=== PATIENT | male | born 1985 | race Hispanic/Latino ===

== ENCOUNTER → 2018-01-12 | Outpatient (CLI) | payer BC ==
[~2018-01-12] MED LIST: GADOBENATE DIMEGLUMINE 1 ML IV ONE; SODIUM CHLORIDE 0.9% 100 ML ONE
--- NOTE | 2018-01-12 10:41 | Diagnostic Imaging Report ---
History: History: Possible prolactinoma Comparison studies: None Technique: Pre-and post coronal and sagittal T1. Coronal T2. Axial DWI through the brain. Dynamic postcontrast coronal through the sella Intravenous contrast: 16 cc of MultiHance Findings: Sella: Normal in size and configuration. Pituitary gland: Normal in size. No intra-or suprasellar lesions . Pituitary stalk: Normal in size and at midline. Optic chiasm: Well visualized and unremarkable. Cavernous sinuses: Normal in size and symmetric. Internal carotid arteries: Normal flow void appearance. Sphenoid sinuses: No T2 hyperintense mucosal inflammatory changes. There are no abnormalities in the visualized sections through the brain. IMPRESSION: 1. No abnormalities. Signed by: DR Arnoldo Knight M.D. on 01/12/2018 2:37 PM
== END ==
LOC: MRI 08:45
PROVIDERS: ATTEND Family Medicine
DX: E34.9 Endocrine disorder, unspecified (principal); R79.89 Other specified abnormal findings of blood chemistry
CPT/HCPCS: 70553; J7050